=== PATIENT | female | born 1940 | race Caucasian/White ===

== ENCOUNTER 2023-08-15 14:25 | Outpatient (RCR) | payer MEDICARE, OTHER, SELFPAY ==
--- NOTE | 2023-08-15 15:41 | OPREHPOC ---
Outpatient Therapy Plan of Care This is a Multidisciplinary Plan of Care that may contain components documented by all disciplines (PT, OT, and ST.) PT Problem 1 PT Problem #1 Knowledge Deficit PT Goal 1 Goal The patient will be independent in a home exercise program. Target Visit 4 PT Problem 2 PT Problem #2 Impaired Balance PT Goal 1 Goal 1. The patient will improve Tinetti Balance Scale to at least 19/28 indicating less of a fall risk. 2. The patient will report no falls. Target Visit 10 PT Problem 3 PT Problem #3 Impaired Strength PT Goal 1 Goal 1. The patient will demonstrate 4/5 strength in bilateral hips to improve ability to navigate stairs/curbs. 2. The patient will demonstrate the ability to transfer from sitting to standing with one hand assist indicating improved functional LE strength. Target Visit 10 PT Problem 4 PT Problem #4 Impaired Functional Mobil PT Goal 1 Goal The patient will ambulate 1,200 feet during the 6 minute walk test with the least restrictive device and good mechanics to improve safety with community ambulation. Target Visit 10
--- NOTE | 2023-08-15 15:41 | PTOPEVAL1 ---
Assessment and note entered by Daryb Davila, PT Evaluation Information Assessment Status Evaluation Diagnosis Imbalance Onset 08/12/23 Subjective Information Sara Ferro reports she started having trouble walking and she noticed she was taking smaller steps and staggering. She denies prior hospitalization or medical event that preceded the onset. She denies falls and she denies using an assistive device. She denies dizziness but does notice occasional lightheadedness. She does take blood pressure medication and takes it regularly. She has not had any changes to her medication recently. She denies pain today. She is taking stairs one at a time. She lives in a single family home with her elderly and her grown son. She has two steps to get in the home and uses a handrail. Reported Pain Level Pain Score 0: Self Report Assessment PT Clinical Summary Sara Ferro presents with decreased balance. She is having difficulty with walking and reports occasional staggering. She objectively demonstrates decreased bilateral hip strength, decreased static and dynamic balance, impaired gait, impaired posture, and decreased safety with daily activities. Scores on standard balance tests indicate a high fall risk. She was educated on use of cane with gait to improve safety. She will benefit from further PT to address these above deficits and improve her safety and ability to perform daily activities. Plan of Care Interventions Gait Training,Manual Therapy,Neuro Re-education, Patient/Caregiver Educati,Therapeutic Activities, Therapeutic Exercise PT Services Indicated Yes Treatment Frequency and 2 times a week for 10 visits Duration These treatments will address the objective and functional deficits as defined above. The patient will be advanced safely and appropriately in order for the patient to progress towards his/her prior level of function. Additional exercises will be introduced and as well as a comprehensive home exercise program upon discharge, if needed, ?to ensure carryover of functional gains achieved in the clinic. This treatment plan has been reviewed and agreement upon by the patient.
--- NOTE | 2023-09-17 15:47 | OPREHPOC ---
Outpatient Therapy Plan of Care This is a Multidisciplinary Plan of Care that may contain components documented by all disciplines (PT, OT, and ST.) PT Problem 1 PT Problem #1 Knowledge Deficit PT Goal 1 Goal The patient will be independent in a home exercise program Target Visit 4 Progress Met PT Problem 2 PT Problem #2 Impaired Balance PT Goal 1 Goal 1. The patient will improve Tinetti Balance Scale to at least 19/28 indicating less of a fall risk, met 2. The patient will report no falls, met Target Visit 10 Progress Met PT Problem 3 PT Problem #3 Impaired Strength PT Goal 1 Goal 1. The patient will demonstrate 4/5 strength in bilateral hips to improve ability to navigate stairs/curbs. met 2. The patient will demonstrate the ability to transfer from sitting to standing with one hand assist indicating improved functional LE strength, met Target Visit 10 Progress Met PT Problem 4 PT Problem #4 Impaired Functional Mobil PT Goal 1 Goal The patient will ambulate 1,200 feet during the 6 minute walk test with the least restrictive device and good mechanics to improve safety with community ambulation. Target Visit 10 Progress Not Met
--- NOTE | 2023-09-17 15:47 | PTOPDC ---
Assessment and note entered by Brit Cabrera DPT Evaluation Information Assessment Status Re-evaluation Diagnosis Imbalance Onset 08/12/23 Subjective Information patient reports no falls since start of PT. she reports she is not always good about doing her HEP but does walk and climb her stairs multiple times per day. she denies pain. she reports her balance improved since starting PT. she reports she feels like her steps have improved since IE. Reported Pain Level Pain Score 0: Self Report Assessment PT Clinical Summary Mrs. Ferro has been seen for 10 visits of skilled PT and met all goals besides 6 min walk test distance. She has low fall risk indicated by Tinetti balance scoring and has improve LE strength. She has reported improved balance and step length with no falls since start of care. She reports independence with HEP and is appropriate for DC at this time. Plan of Care PT Services Indicated No
== END 2023-09-17 20:00 | disposition home or self-care (01) ==
LOC: CHSPT 14:25
PROVIDERS: Visit Provider Family Medicine
DX: R26.89 Other abnormalities of gait and mobility (principal)
CPT/HCPCS: 97110; 97112; 97116; 97161

== ENCOUNTER 2024-07-16 13:39 | Outpatient (RCR) | payer MEDICARE, OTHER, SELFPAY ==
--- NOTE | 2024-07-16 14:35 | OPREHPOC ---
Outpatient Therapy Plan of Care This is a Multidisciplinary Plan of Care that may contain components documented by all disciplines (PT, OT, and ST.) PT Problem 1 PT Problem #1 Knowledge Deficit PT Goal 1 Goal / Goal Update 1. independent and compliant with HEP Target Visit 6 PT Problem 2 PT Problem #2 Impaired Strength PT Goal 1 Goal / Goal Update 1. 4+/5 or better bilateral hip strength overall in sitting 2. 4+/5 or better bilateral knee flex strength Target Visit 12 PT Problem 3 PT Problem #3 Impaired Balance PT Goal 1 Goal / Goal Update 1. tinetti to display moderate fall risk or less 2. 5x sit to stand to be completed safely in 12 second or less 3. TUG to be completed safely with appropriate AD in 15 seconds or less Target Visit 12 PT Problem 4 PT Problem #4 Impaired Functional Mobility PT Goal 1 Goal / Goal Update 1. patient to use an AD appropriately at all times to improve stability and decrease fall risk.
--- NOTE | 2024-07-16 14:35 | PTOPEVAL1 ---
Assessment and note entered by JT File, PT Evaluation Information Assessment Status Evaluation Subjective Information patient reports she has trouble walking. she reports she has no pain. she reports she brought up her walking issues to her PCP, and reports she was told to come to therapy. she reports she has had no falls. she reports she uses a cane all the time to ambulate. she reports she has used a walker at times, but reports she likes the cane more. she reports when she gets up after sitting for a while she has to stand for a minute and get her bearing to prevent falling. she reports she does not feel she will pass out or anything if she does not do this, but she will be more unsteady. Reported Pain Level Pain Score 0: Self Report Assessment PT Clinical Summary mrs. jones is an 83 yo woman who presents to skilled PT services for evaluation and treatment of unsteady gait. she has had no falls, but displays a high fall risk per the tinetti. she is near a high fall risk on the 5x sit to stand, and is uncontrolled in sitting speed to the chair. she displays decreased bilateral LE strength, poor posture, and poor righting reactions. continued skilled PT is indicated to improve her balance and safety with ambulation to decrease falls and risk of injury. Plan of Care Interventions Gait Training,Neuro Re-education,Patient/Caregiver Education,Therapeutic Activities,Therapeutic Exercise PT Services Indicated Yes Treatment Frequency and 3x weekly for 12 visits Duration These treatments will address the objective and functional deficits as defined above. The patient will be advanced safely and appropriately in order for the patient to progress towards his/her prior level of function. Additional exercises will be introduced and as well as a comprehensive home exercise program upon discharge, if needed, to ensure carryover of functional gains achieved in the clinic. This treatment plan has been reviewed and agreement upon by the patient.
--- NOTE | 2024-08-20 12:50 | PCPTNOTE ---
Cancelled session. Pt reports she would like to be discharged.
== END 2024-08-11 20:00 | disposition home or self-care (01) ==
LOC: CHSPT 13:39
PROVIDERS: PCP Family Medicine; Visit Provider Family Medicine
DX: R26.9 Unspecified abnormalities of gait and mobility (principal)
CPT/HCPCS: 97110; 97112; 97150; 97161; 97530

== ENCOUNTER 2025-02-08 12:52 | Outpatient (RCR) | payer MEDICARE, OTHER, SELFPAY ==
--- NOTE | 2025-02-08 13:50 | OPREHPOC ---
Outpatient Therapy Plan of Care This is a Multidisciplinary Plan of Care that may contain components documented by all disciplines (PT, OT, and ST.) PT Problem 1 PT Problem #1 Knowledge Deficit PT Goal 1 Goal / Goal Update Independent and compliant with HEP. Target Visit 2 PT Problem 2 PT Problem #2 Impaired Strength PT Goal 1 Goal / Goal Update Pt to improve bilat LE strength to 4+/5 grossly. Target Visit 4 PT Problem 3 PT Problem #3 Impaired Balance PT Goal 1 Goal / Goal Update Pt to improve TUG time to 20 secs or less. Pt to improve 5xSTS time to 20 secs or less. Pt to improve Tinetti score by 3 points. Target Visit 4 PT Problem 4 PT Problem #4 Impaired Gait PT Goal 1 Goal / Goal Update Pt to ambulate with straight path, improved stride length and posture to improve safety when navigating her home and community. Target Visit 4
--- NOTE | 2025-02-08 13:53 | PTOPEVAL1 ---
Assessment and note entered by Faiza Steven, PT Evaluation Information Assessment Status Evaluation Diagnosis Imbalance ICD-10 Condition Codes (PT) Difficulty Walking R26.2,Weakness R53.1 Other ICD-10 Condition Codes ( R26.89 PT) Onset 02/03/2025 Subjective Information Pt reports she has been having trouble walking and has been walking slowly. She reports she occasionally loses her balance but has not fallen. She reports she has a cane and a walker at home but she often furniture walks. She states she rarely leaves the house and when she does she often forgets her cane since she never uses it much, and that when she does use her cane she feels clumsy. She reports she does not really have a goal for therapy. Reported Pain Level Pain Score 0: Self Report Assessment PT Clinical Summary Mrs. Ferro is an 84yo female presenting to skilled PT evaluation for difficulty walking and imbalance. She demonstrates moderate deficits in hip mm strength, is high fall risk per TUG, Tinetti, and 5xSTS and also demonstrates gait deficits such as reduced step length, path deviation and shuffling that contribute to fall risk. She will benefit from skilled PT intervention to address these deficits to improve her ability to ambulate at home and in the community with improved safety. Plan of Care Interventions Gait Training,Hot Pack/Cold Pack,Manual Therapy, Neuro Re-education,Patient/Caregiver Education, Therapeutic Activities,Therapeutic Exercise,Self- Care/Home Management PT Services Indicated Yes Treatment Frequency and 1x/week for 4 visits Duration These treatments will address the objective and functional deficits as defined above. The patient will be advanced safely and appropriately in order for the patient to progress towards his/her prior level of function. Additional exercises will be introduced and as well as a comprehensive home exercise program upon discharge, if needed, ?to ensure carryover of functional gains achieved in the clinic. This treatment plan has been reviewed and agreement upon by the patient.
--- NOTE | 2025-03-01 13:53 | OPREHPOC ---
Outpatient Therapy Plan of Care This is a Multidisciplinary Plan of Care that may contain components documented by all disciplines (PT, OT, and ST.) PT Problem 1 PT Problem #1 Knowledge Deficit PT Goal 1 Goal / Goal Update Independent and compliant with HEP. Target Visit 2 Progress Not Met PT Problem 2 PT Problem #2 Impaired Strength PT Goal 1 Goal / Goal Update Pt to improve bilat LE strength to 4+/5 grossly. Target Visit 4 Progress Partially Met PT Problem 3 PT Problem #3 Impaired Balance PT Goal 1 Goal / Goal Update Pt to improve TUG time to 20 secs or less. -met Pt to improve 5xSTS time to 20 secs or less. -met Pt to improve Tinetti score by 3 points. -met Target Visit 4 Progress Met PT Problem 4 PT Problem #4 Impaired Gait PT Goal 1 Goal / Goal Update Pt to ambulate with straight path, improved stride length and posture to improve safety when navigating her home and community. Target Visit 4 Progress Met
--- NOTE | 2025-03-01 13:53 | PTOPDC ---
Assessment and note entered by Faiza Steven, PT Evaluation Information Assessment Status Discharge Diagnosis Imbalance ICD-10 Condition Codes (PT) Difficulty Walking R26.2,Weakness R53.1 Other ICD-10 Condition Codes ( R26.89 PT) Onset 02/03/2025 Subjective Information Mrs. Ferro reports she's seen better days today. She feels like her balance and walking haven't improved much, but she feels like she is ready to be done with therapy today. Reported Pain Level Pain Score 0: Self Report Assessment PT Clinical Summary Mrs. Ferro has attended 4 skilled PT visits for weakness, difficulty walking and imbalance. While she does not feel like she's improved subjectively , she demonstrates objective improvements in Tinetti score, 5xSTS, TUG and LE strength. She has met her goals addressing gait and balance and made good progress in her bilateral knee strength. She also demonstrates improved ambulation araseli and stride length, as well as improved steadiness when turning. She will be discharged from skilled PT this date with education to continue HEP at home. Plan of Care PT Services Indicated No
== END 2025-03-01 20:00 | disposition home or self-care (01) ==
LOC: CHSPT 12:52
PROVIDERS: Visit Provider Family Medicine
DX: R26.89 Other abnormalities of gait and mobility (principal); R26.2 Difficulty in walking, not elsewhere classified; R53.1 Weakness
CPT/HCPCS: 97110; 97112; 97161; 97530